=== PATIENT | male | born 1970 | race Asian ===

== ENCOUNTER 2016-12-24 19:32 | Inpatient (IN) | payer OTHER ==
[~2016-12-24] VITALS: Ht 167.6 cm; Wt 67.1 kg
[2016-12-24 23:18] LABS: BASOPHIL % 0.5 % (0-2); PLATELET COUNT 199 x10^3mcL (130-400); RED CELL DISTRIBUTION WIDTH 12.9 % (11.5-14.5)
[2016-12-24 23:27] LABS: CALCIUM 9.2 mg/dL (8.5-10.1); CARBON DIOXIDE 29.2 mmol/L (21-32); CHLORIDE SERUM 96 mmol/L (98-107); GFR1 > 60 mL/min; GLUCOSE SERUM 114 mg/dL (74-106); SODIUM SERUM 135 mmol/L (136-145)
[2016-12-24 23:32] LABS: ALBUMIN 4.2 g/dL (3.4-5.0); ALKALINE PHOSPHATASE 52 U/L (46-116); ALT/SGPT 33 U/L (16-63); AST/SGOT 21 U/L (15-37); BILIRUBIN TOTAL 1.4 mg/dL (0.20-1.00); CHOLESTEROL 187 mg/dL (<200); LIPASE 180 IU/L (73-393); TOTAL PROTEIN, SERUM 7.9 g/dL (6.4-8.2); TRIGLYCERIDES 48 mg/dL (<150)
[2016-12-24 23:33] LABS: CHOLESTEROL/HDL RATIO 2.5; HDL CHOLESTEROL 76 mg/dL (40-60)
[2016-12-24 23:46] LABS: microscopic required? NO
[2016-12-24 23:54] LABS: UA SPECIFIC GRAVITY <=1.005 (1.005-1.035); urine erythrocyte NEGATIVE (NEGATIVE)
[2016-12-24 23:57] LABS: FREE T4 1.26 ng/dL (0.76-1.46); FREE THYROXINE INDEX 3.1 ug/dL (1.4-4.5); T4(THYROXINE) 7.9 ug/dL (4.7-13.3)
[2016-12-25] VITALS (7 sets, daily range): BP systolic 107–152; BP diastolic 65–100; Ht 167.6 cm; Wt 67.1 kg
[2016-12-25 00:21] LABS: T3 TOTAL 0.79 ng/mL
[2016-12-25 01:20] LABS: MAGNESIUM 1.9 mg/dL (1.8-2.4); PHOSPHOROUS 4.4 mg/dL (2.5-4.9)
[2016-12-25 01:24] LABS: AMPHETAMINE QUAL UR NONE DETECTED (NEG <=1000)
[2016-12-25 06:40] LABS: CALCIUM 9.1 mg/dL (8.5-10.1); CARBON DIOXIDE 29.8 mmol/L (21-32); CHLORIDE SERUM 103 mmol/L (98-107); CREATININE SERUM 0.9 mg/dL (0.7-1.3); GFR1 > 60 mL/min; GLUCOSE SERUM 97 mg/dL (74-106); POTASSIUM SERUM 3.7 mmol/L (3.5-5.1); SODIUM SERUM 141 mmol/L (136-145)
[2016-12-26 05:35] VITALS: BP 115/84
[2016-12-26 06:04] LABS: BASOPHIL % 0.4 % (0-2); PLATELET COUNT 189 x10^3mcL (130-400); RED CELL DISTRIBUTION WIDTH 13.3 % (11.5-14.5)
[2016-12-26 06:26] LABS: CALCIUM 8.3 mg/dL (8.5-10.1); CARBON DIOXIDE 29.1 mmol/L (21-32); CHLORIDE SERUM 107 mmol/L (98-107); CREATININE SERUM 1.1 mg/dL (0.7-1.3); GFR1 > 60 mL/min; GLUCOSE SERUM 99 mg/dL (74-106); MAGNESIUM 2.5 mg/dL (1.8-2.4); PHOSPHOROUS 4.5 mg/dL (2.5-4.9); POTASSIUM SERUM 4.1 mmol/L (3.5-5.1); SODIUM SERUM 142 mmol/L (136-145)
[2016-12-26 08:01] VITALS: BP 122/78
[2016-12-26] MEDS ORDERED: ECO81 PO (09:05)
[2016-12-26 09:33] VITALS: BP 122/78
== END 2016-12-26 12:30 | disposition home or self-care (01) | DRG 243 ==
LOC: ED 19:32 → DU 12-25 00:27 → MU 12-26 08:11
PROVIDERS: Family Medicine; Specialist; ADMIT Family Medicine
DX: K21.9 Gastro-esophageal reflux disease without esophagitis (principal); E87.8 Other disorders of electrolyte and fluid balance, not elsewhere classified; E87.1 Hypo-osmolality and hyponatremia; M94.0 Chondrocostal junction syndrome [Tietze]; R49.22 Hyponasality; E78.5 Hyperlipidemia, unspecified; E80.6 Other disorders of bilirubin metabolism
CPT/HCPCS: 80307; 83880; 84439; C9113; J7030; Q0092